=== PATIENT | male | born 1950 | race Two or more races ===

== ENCOUNTER → 2016-10-10 | Outpatient (CLI) | payer OTHER | LOC: BHLMT 09:15 | PROVIDERS: ATTEND Internal Medicine Cardiovascular Disease | DX: R55 Syncope and collapse (principal) | CPT/HCPCS: 93306-PO ==

== ENCOUNTER → 2018-01-31 | Outpatient (CLI) | payer OTHER | LOC: BHFA 14:00 | PROVIDERS: ATTEND Internal Medicine Cardiovascular Disease | DX: R55 Syncope and collapse (principal) ==

== ENCOUNTER → 2018-02-01 | Outpatient (CLI) | payer OTHER | LOC: BHFA 14:00 | PROVIDERS: ATTEND Internal Medicine Interventional Cardiology | DX: R55 Syncope and collapse (principal) ==

== ENCOUNTER 2018-02-04 05:35 | Day surgery (SDC) | payer OTHER ==
--- NOTE | 2018-02-03 19:39 | PDGENHP ---
History and Physical - Chief Complaint LIH - History of Present Illness 67yo M with symptomatic LIH. Has had for some time, getting worse. Reducible. History Information - Allergies/Home Medication List Allergies/Adverse Reactions: No Known Allergies Allergy (Unverified 02/01/18 15:58) Home Medications: NK [No Known Home Meds] 02/01/18 [Last Taken Unknown] I have personally reviewed and updated: medical history, social history, surgical history - Social History Smoking Status: Never smoked Review of Systems Review of Systems: ROS: 10pt was reviewed & negative except for what was stated in HPI & below Physical Exam Physical Exam: Constitutional: no apparent distress, appears nourished, not in pain Eyes: PERRL, anicteric sclera, EOMI Ears, Nose, Mouth, Throat: moist mucous membranes, hearing normal, ears appear normal, no oral mucosal ulcers Cardiovascular: regular rate and rhythym, no murmur, rub, or gallop, No edema Respiratory: no respiratory distress, no rales or rhonchi, clear to auscultation Gastrointestinal: normoactive bowel sounds, other (symptomatic, reducible LIH) Genitourinary: no bladder fullness, no bladder tenderness Skin: warm, normal color, no rashes or abrasions, no fluctuance, no induration, No mottled Musculoskeletal: full muscle strength, no muscle tenderness, normal joint ROM, no joint effusions Psychiatric: interacting appropriately, not anxious, not encephalopathic, thought process linear Lymph, Heme, Immunologic: no cervical LAD, no supraclavicular LAD Assessment & Plan Plan: 67yo M c LIH - To OR for robotic assisted repair. RBA discussed
[2018-02-04] MEDS ORDERED: ceFAZolin 2 GM/DEXTROSE 100 ML IV ONE (05:54)
[2018-02-04] MEDS ORDERED: LR 1,000 ML IV ONE (05:55)
--- NOTE | 2018-02-04 06:24 | PDHPUP ---
History & Physical Update H&P update statement: This history and physical update is based on an assessment of the patient which was completed after admission or registration (within 24 hours), but prior to the surgery/procedure. H&P update: H&P reviewed & patient examined, no change in patient's condition since H&P completed
[2018-02-04] MEDS ORDERED: fentaNYL 250 MCG/5 ML INJ ONE (07:07)
[2018-02-04] MEDS ORDERED: PROPOFOL 200 MG/20 ML VIAL ONE (07:08)
[2018-02-04] MEDS ORDERED: ROCURONIUM 50 MG/5 ML VIAL ONE (07:08)
[2018-02-04] MEDS ORDERED: METOCLOPRAMIDE 10 MG/2 ML VIAL ONE (07:09)
[2018-02-04] MEDS ORDERED: LIDOCAINE 2% 100 MG/5 ML SYR ONE (07:09)
[2018-02-04] MEDS ORDERED: DEXAMETHASONE 4 MG/ML VIAL ONE ×2 (07:09)
[2018-02-04] MEDS ORDERED: MIDAZOLAM 2 MG/2 ML VIAL ONE (07:14)
[2018-02-04] MEDS ORDERED: BUPIVACAINE/EPI 0.5% 30 ML SDV ONE (07:31)
[2018-02-04] MEDS ORDERED: ONDANSETRON 4 MG/2 ML VIAL IVP PRN (07:35)
[2018-02-04] MEDS ORDERED: ALBUTEROL 3 ML DEYVIAL IH PRN (07:35)
[2018-02-04] MEDS ORDERED: NALOXONE HCL 0.4 MG/ML INJ IVP PRN (07:35)
[2018-02-04] MEDS ORDERED: fentaNYL 100 MCG/2 ML INJ IVP PRN (07:35)
--- NOTE | 2018-02-04 07:35 | PDANEPAE ---
ANE Past Medical History - Cardiovascular History Hx Hypertension: No Hx Arrhythmias: No Hx Chest Pain: No Hx Coronary Artery / Peripheral Vascular Disease: No Hx CHF / Valvular Disease: No Hx Palpitations: No - Pulmonary History Hx COPD: No Hx Asthma/Reactive Airway Disease: No Hx Recent Upper Respiratory Infection: No Hx Oxygen in Use at Home: No Hx Sleep Apnea: No Sleep Apnea Screening Result - Last Documented: Negative - Neurologic History Hx Cerebrovascular Accident: No Hx Seizures: No Hx Dementia: No Neurologic History Comment: RECURRING SYNCOPE DRIVING RECENT WORKUP TO RULE OUT NARCOLEPSY TO WEAR HEART MONITOR POST SURGERY - Endocrine History Hx Diabetes: No - Renal History Hx Renal Disorders: No - Liver History Hx Hepatic Disorders: No - Neurological & Psychiatric Hx Hx Neurological and Psychiatric Disorders: No - Cancer History Hx Cancer: No - Congenital Disorder History Hx Congenital Disorders: No - GI History Hx Gastrointestinal Disorders: No - Other Health History Other Health History: HAS UPPER LT PARTIAL. INTERMITTENT TINNITUS - Chronic Pain History Chronic Pain: Yes (LT GROIN AREA) - Surgical History Prior Surgeries: LT SHLDR RTC. LT TIBIAL PLATEAU REPAIR. LT FOOT SMALL TOE ORIF ANE Review of Systems Review of Systems: - Exercise capacity METS (RN): 6 METS ANE Patient History - Allergies Allergies/Adverse Reactions: No Known Allergies Allergy (Unverified 02/01/18 15:58) - Home Medications Home Medications: NK [No Known Home Meds] 02/01/18 [Last Taken Unknown] - NPO status NPO Since - Liquids (Date): 02/04/18 NPO Since - Liquids (Time): 04:45 NPO Since - Solids (Date): 02/03/18 NPO Since - Solids (Time): 21:00 - Smoking Hx Smoking Status: Never smoked ANE Labs/Vital Signs - Vital Signs Blood Pressure: 115/62 Heart Rate: 64 Respiratory Rate: 19 O2 Sat (%): 94 Height: 180.34 cm Weight: 68.039 kg ANE Physical Exam - Airway Neck exam: FROM Mallampati Score: Class 2 Mouth exam: dentures - Pulmonary Pulmonary: no respiratory distress - Cardiovascular Cardiovascular: regular rate and rhythym - ASA Status ASA Status: II ANE Anesthesia Plan Anesthesia Plan: general endotracheal anesthesia
[2018-02-04] MEDS ORDERED: SUGAMMADEX SODIUM 200 MG/2 ML VIAL IVP ONE (08:25)
--- NOTE | 2018-02-04 08:38 | POSTOPPROG ---
Post Op Note Date of Operation: 02/04/18 Surgeon: Fede Eugene Sightseeing Guide: Alfonso QUINONES Anesthesiologist: Jay Anesthesia: GET(General Endotracheal) Pre-op Diagnosis: LIH Post-op Diagnosis: same Procedure: Robotic assisted LIH c mesh Findings: moderate indirect defect Inf/Abcess present in the surg proc area at time of surgery?: No EBL: Minimal
--- NOTE | 2018-02-04 09:12 | POSTANESTH ---
Post Anesthetic Evaluation Cardiovascular Status: Similar to Pre-Op Cond Respiratory Status: Similar to Pre-op Cond. Level of Consciousness/Mental Status: Mildly Sleepy, Arousable Pain Control: Adequate, Prn Tx Ordered Nausea/Vomiting Control: Adequate, Prn Tx Ordered Complications Possibly Related to Anesthesia: None Noted
[2018-02-04 10:50] VITALS: BP 138/86
--- NOTE | 2018-02-05 20:37 | GOP ---
DATE OF OPERATION: 02/04/2018 SURGEON: Fede Eugene MD LINER MACHINE OPERATOR HELPER: Mame Hamilton, STACIE. ANESTHESIA: General endotracheal. ANESTHESIOLOGIST: Dr. Rolan Thompson. PREOPERATIVE DIAGNOSIS: Symptomatic left inguinal hernia. POSTOPERATIVE DIAGNOSIS: Indirect left inguinal hernia. PROCEDURE PERFORMED: Robotic-assisted laparoscopic left inguinal hernia repair with mesh. FINDINGS: Moderate-size indirect defect repaired with Bard 3DMax Light mesh. SPECIMENS: None. ESTIMATED BLOOD LOSS: 5 cc. DESCRIPTION OF PROCEDURE: The patient was greeted in the preoperative suite. Once again, risks, chay efits, and alternatives were discussed. Consent was signed. He was then brought back to the operati ve suite, placed on the OR table in supine position. After all anesthesia machines including SCDs we re on and functioning, [employer] time-out was performed. The patient's abdomen was t hen prepped and draped in typical sterile fashion. I entered the abdomen via a supraumbilical cutdow n, through which the Veress needle was passed. I achieved pneumoperitoneum to 15 mmHg, which was wel l tolerated by the patient. Through this, I inserted an 8 mm port. I then inserted 2 additional 8 m m ports, 1 in the right upper, 1 in the left upper quadrant, both under direct visualization. Once s uccessfully in the abdomen, the patient was placed in gentle Trendelenburg position and the robot was successfully docked I turned my attention toward the left side, where a peritoneal defect was create d from the ASIS all the way medial to the pubic tubercle. I then opened this all the way down to the visceral sac. A moderate-size indirect hernia was identified. The peritoneum was skeletonized off the cord structures, taking care to protect the cord structures. Once successfully skeletonized, I t lee interrogated the direct and femoral spaces and found no other hernias. The space was then cleare d for the mesh. The mesh was then brought in place. It was tacked to Karan's ligament with an inte rrupted 3-0 Vicryl stitch. An additional Vicryl stitch on either side of the epigastrics tacked the mesh in place appropriately. The peritoneal defect was then closed with a running V-Loc suture. Pne umoperitoneum was then evacuated. Ports were then closed with 4-0 Monocryl, over which Dermabond was placed. The patient tolerated the procedure well without any complications. DRAINS: None. /[id number]/MODL
== END 2018-02-04 11:15 | disposition home or self-care (01) ==
LOC: FSGY 05:35
PROVIDERS: ATTEND Surgery
PROC: 0YU64JZ Supplement Left Inguinal Region with Synthetic Substitute, Percutaneous Endoscopic Approach (ICD-10-PCS; principal; 2018-02-04 07:15)
DX: K40.90 Unilateral inguinal hernia, without obstruction or gangrene, not specified as recurrent (principal)
CPT/HCPCS: C1781; J0690; J1100; J2001; J2250; J2704; J2765; J3010

== ENCOUNTER → 2018-04-18 | Outpatient (CLI) | payer OTHER | LOC: BHFA 09:30 | PROVIDERS: ATTEND Internal Medicine Cardiovascular Disease | DX: R55 Syncope and collapse (principal) ==

== ENCOUNTER → 2018-08-19 | Outpatient (CLI) | payer OTHER ==
[~2018-08-19] MED LIST: GADOBUTROL 10 ML VIAL IVP ONE
== END ==
LOC: FIMAGING 06:51
PROVIDERS: ATTEND Internal Medicine
DX: R55 Syncope and collapse (principal); M50.91 Cervical disc disorder, unspecified, high cervical region
CPT/HCPCS: 70553; A9585; 82565-PO

== ENCOUNTER → 2018-09-23 | Outpatient (CLI) | payer OTHER | LOC: BHLMT 10:45 | PROVIDERS: ATTEND Internal Medicine Cardiovascular Disease | DX: R55 Syncope and collapse (principal) | CPT/HCPCS: 93880-PO ==

== ENCOUNTER → 2018-10-01 | Outpatient (CLI) | payer OTHER | LOC: FCPNEURO 08:15 ==